=== PATIENT | male | born 1980 | race Caucasian/White ===

== ENCOUNTER 2017-11-22 07:08 | Emergency (ER) | payer OTHER ==
[~2017-11-22] VITALS: Ht 182.9 cm; Wt 58.1 kg
[2017-11-22 07:42] LABS: ABSOLUTE BASOPHILS 0.1 thou/uL (0.0-0.2); ABSOLUTE EOSINOPHILS 0.1 thou/uL (0.0-0.7); ABSOLUTE LYMPHOCYTES 3.1 thou/uL (0.8-5.3); ABSOLUTE MONOCYTES 0.5 thou/uL (0.0-1.2); ABSOLUTE NEUTROPHILS 3.9 thou/uL (1.6-8.1); BASOPHILS 0.7 %; EOSINOPHILS 0.9 %; HEMATOCRIT 42.2 % (42.0-52.0); HEMOGLOBIN 14.7 gm/dL (14.0-18.0); LYMPHOCYTES 40.6 %; MCH 34.4 pg (26.0-34.0); MCHC 34.8 g/dL (28.0-37.0); MCV 98.9 fL (80.0-100.0); MONOCYTES 6.2 %; MPV 8.4 fl. (7.2-11.1); NUCLEATED RBCS 0 /100WBC; PLATELET COUNT* 224 thou/uL (150-400); POLYS 51.6 %; RBC 4.27 mil/uL (4.50-6.00); RDW-CV 12.9 % (10.5-14.5); WBC 7.6 thou/uL (4.0-11.0)
[2017-11-22 07:47] LABS: CREATININE 0.9 mg/dL (0.6-1.3)
[2017-11-22 07:52] LABS: ALBUMIN 4.3 g/dL (3.4-5.0); TOTAL BILIRUBIN 0.4 mg/dL (<0.1-1.0); TOTAL PROTEIN 7.7 g/dL (6.4-8.2)
[2017-11-22 08:00] LABS: ALCOHOL 200 mg/dL (<10); SALICYLATE < 2.8 mg/dL (2.8-20.0)
[2017-11-22 08:01] LABS: ACETAMINOPHEN < 2 ug/mL (10-30)
[2017-11-22 08:35] LABS: URINE BILIRUBIN NEGATIVE (Negative); URINE BLOOD NEGATIVE (Negative); URINE CLARITY CLEAR; URINE COLOR YELLOW; URINE GLUCOSE-RANDOM NEGATIVE (Negative); URINE KETONES NEGATIVE (Negative); URINE LEUKOCYTES-REFLEX NEGATIVE (Negative); URINE NITRITE-REFLEX NEGATIVE (Negative); URINE PROTEIN NEGATIVE (Negative); URINE SPECIFIC GRAVITY 1.015 (1.005-1.030); URINE UROBILINOGEN 0.2 E.U./dl (0.2-1.0)
[2017-11-22 08:39] LABS: URINE CLARITY ND; URINE COLOR ND
[2017-11-22 08:40] LABS: URINE SPECIFIC GRAVITY ND (1.005-1.030)
[2017-11-22 08:41] LABS: URINE GLUCOSE-RANDOM ND (Negative); URINE PROTEIN ND (Negative)
[2017-11-22 08:42] LABS: URINE BILIRUBIN ND (Negative); URINE KETONES ND (Negative)
[2017-11-22 08:43] LABS: URINE BLOOD ND (Negative); URINE NITRITE-REFLEX ND (Negative)
[2017-11-22 08:44] LABS: SQUAMOUS ND /LPF (0-3); URINE LEUKOCYTES-REFLEX ND (Negative); URINE UROBILINOGEN ND E.U./dl (0.2-1.0)
[2017-11-22 08:45] LABS: BACTERIA-REFLEX ND /HPF (None Seen); URINE RBC ND /HPF (0-2); URINE WBC-REFLEX ND /HPF (0-5)
[2017-11-22 08:46] LABS: CASTS ND /LPF (None Seen); CRYSTALS ND /LPF (None Seen)
[2017-11-22 08:46] LABS: AMP/METHAMP Negative (Negative); BARBITURATES Negative (Negative); BENZODIAZEPINES Negative (Negative); COCAINE Negative (Negative); METHADONE Negative (Negative); OPIATES Negative (Negative); PCP Negative (Negative); THC POSITIVE (Negative)
[2017-11-22 08:47] LABS: AMP/METHAMP ND (Negative); BARBITURATES ND (Negative)
[2017-11-22 08:48] LABS: BENZODIAZEPINES ND (Negative); COCAINE ND (Negative); METHADONE ND (Negative); OPIATES ND (Negative)
[2017-11-22 08:50] LABS: PCP ND (Negative); THC ND (Negative)
[2017-11-22 16:17] VITALS: BP 122/69
== END 2017-11-22 16:11 ==
LOC: M.ERS 07:08
PROVIDERS: Family Medicine
DX: R45.851 Suicidal ideations (principal); F10.129 Alcohol abuse with intoxication, unspecified; Y90.7 Blood alcohol level of 200-239 mg/100 ml